=== PATIENT | female | born 1950 | race Caucasian/White ===

== ENCOUNTER 2019-03-06 13:50 | Emergency (ER) | payer MEDICARE, OTHER ==
[2019-03-06] MEDS ORDERED: Fluorescein 1 MG Ophth Strip ONE (13:55)
[2019-03-06] MEDS ORDERED: Gentamicin 0.3% Ophth Soln 5 ML Bottle ONE (13:55)
[2019-03-06] MEDS ORDERED: Tetracaine 0.5% 2 ML Bottle ONE (13:55)
--- NOTE | 2019-03-06 14:38 | EDM.PDOC ---
ED HPI GENERAL MEDICAL PROBLEM - General Stated Complaint: EYE PROBLEM Time Seen by Provider: 03/06/19 14:05 Source of Information: Reports: Patient History Limitations: Reports: No Limitations - History of Present Illness INITIAL COMMENTS - FREE TEXT/NARRATIVE: according to patient she hurt her right eye yesterday afternoon. She was pulling one of the closet drawer and the drawer came off and hit her right eye. Since then she has been having pain in her right eye and also increased tearing form the eye. Pt has been using artificial tears and it stings in the eye. As her right eye pain has not got better , she came into emergency room.No blurry vision or double vision., no halo around the light. No headache. no nausea or vomiting. No other injuries or complaints. Onset: Today Onset Date: 03/05/19 Onset Time: 12:00 Duration: Other (unchanged) Location: Reports: Other (right eye) Quality: Reports: Ache Severity: Moderate Improves with: Reports: None Worsens with: Reports: None Associated Symptoms: Denies: Confusion, Chest Pain, Cough, Diaphoresis, Fever/ Chills, Headaches, Nausea/Vomiting, Rash, Seizure, Shortness of Breath, Syncope , Weakness Treatments UT[employer] SALES REPRESENTATIVE: Reports: Other Medication(s) Other Treatments UT[employer] SALES REPRESENTATIVE: eye drops ED ROS GENERAL - Review of Systems Review Of Systems: See Below Constitutional: Denies: Fever, Chills, Weakness HEENT: Reports: Eye Pain. Denies: Ear Pain, Eye Discharge, Nosebleed, Rhinitis , Throat Pain Respiratory: Denies: Cough, Sputum Cardiovascular: Denies: Chest Pain, Lightheadedness GI/Abdominal: Denies: Abdominal Pain, Nausea, Vomiting : Denies: Dysuria, Frequency Musculoskeletal: Denies: Joint Pain, Joint Swelling Skin: Denies: Bruising, Pruritis, Rash Neurological: Denies: Confusion, Dizziness, Headache, Numbness, Tingling ED EXAM, GENERAL - Physical Exam Exam: See Below Exam Limited By: No Limitations General Appearance: Alert, WD/WN, Mild Distress Eye Exam: Right Eye: Corneal Abrasion (there is a trapezoid corneal tear , ove the lateral quadrant of the cornea, not invovling the visual axis of the eye. Sarmad approximately 2mm by 3mm. Floroscein exam done.There is circum corneal congestion.), Bilateral Eye: EOMI, PERRL Ears: Normal External Exam, Normal Canal, Hearing Grossly Normal, Normal TMs Ear Exam: Bilateral Ear: Auricle Normal, Canal Normal, TM normal Nose: Normal Inspection, Normal Mucosa, No Blood Throat/Mouth: Normal Inspection, Normal Lips, Normal Teeth, Normal Gums, Normal Oropharynx, Normal Voice, No Airway Compromise Head: Atraumatic, Normocephalic Respiratory/Chest: No Respiratory Distress, Lungs Clear, Normal Breath Sounds, No Accessory Muscle Use, Chest Non-Tender Cardiovascular: Normal Peripheral Pulses, Regular Rate, Rhythm, No Edema, No Gallop, No JVD, No Murmur, No Rub Course - Vital Signs Text/Narrative:: There is circumcorneal congestion noted in the right eye. No corneal opacity noted on normal light exam. On fluorescein eye exam, there is a superficial corneal tear in the lateral quadrant of the right eye, not involving the visual axis of the eye. Pt reassured. Advised not to rub the eye. Advised to weak dark outdoor glasses all the time to prevent blepharospasm. I have started on gentamicin eye drops to use every 2 hrs in the eye( as that is the only eye drop available in the emergency room and [facility] is not open). Script for cipro eye drops given to patient. Return to emergency room, if there is vision blurring or loss of vision. Otherwise followup in the clinic in the morning for recheck. Last Recorded V/S: Last Vital Signs Temp 98.2 F 03/06/19 14:06 Pulse 93 03/06/19 14:06 Resp 18 03/06/19 14:06 BP 160/74 H 03/06/19 14:06 Pulse Ox 98 03/06/19 14:06 Departure - Departure Time of Disposition: 14:20 Disposition: Home, Self-Care 01 Condition: Fair Clinical Impression: Corneal abrasion, right - Discharge Information *PRESCRIPTION DRUG MONITORING PROGRAM REVIEWED*: Not Applicable *COPY OF PRESCRIPTION DRUG MONITORING REPORT IN PATIENT UBALDO: Not Applicable Instructions: Corneal Abrasion, [id number] Referrals: PCP,None [Primary Care Provider] - Care Plan Goals: Take eye drops every 2 hours while awake in right eye. Fill prescription tomorrow and switch to the Cipro after you have those drops filled. Return to Clinic tomorrow for recheck. Wear sun glasses during the day. Call [phone] to make appointment at the Clinic after 830AM. - Problem List & Annotations (1) Corneal abrasion, right SNOMED Code(s): 15492660779564024 Code(s): S05.01XA - INJ CONJUNCTIVA AND CORNEAL ABRASION W/O FB, RIGHT EYE, INIT Status: Acute - Problem List Review Problem List Initiated/Reviewed/Updated: Yes - Assessment/Plan Assessment:: Right eye superficial corneal tear Plan: There is circumcorneal congestion noted in the right eye. No corneal opacity noted on normal light exam. On fluorescein eye exam, there is a superficial corneal tear in the lateral quadrant of the right eye, not involving the visual axis of the eye. Pt reassured. Advised not to rub the eye. Advised to weak dark outdoor glasses all the time to prevent blepharospasm. I have started on gentamicin eye drops to use every 2 hrs in the eye( as that is the only eye drop available in the emergency room and local [facility] pharmacy is not open). Script for cipro eye drops given to patient. Return to emergency room, if there is vision blurring or loss of vision. Otherwise followup in the clinic in the morning for recheck.
== END 2019-03-06 14:25 | disposition home or self-care (01) ==
LOC: LB.ED 13:50
DX: S05.01XA Injury of conjunctiva and corneal abrasion without foreign body, right eye, initial encounter (principal); W22.8XXA Striking against or struck by other objects, initial encounter
CPT/HCPCS: 99283; A9270